=== PATIENT | male | born 1990 | race Two or more races ===

== ENCOUNTER 2018-05-04 13:43 | Emergency (ER) | payer MEDICAID ==
[2018-05-04] MEDS ORDERED: HYDROcodone/acetaminophen 5mg/325mg tablet PO ONE (15:35)
[2018-05-04 15:50] VITALS: BP 124/83
[2018-05-05] MEDS ORDERED: ketorolac tromethamine 15mg/ml inj. IV ONE
[2018-05-05] MEDS ORDERED: LORazepam 2 mg/ml vial IV ONE
== END 2018-05-04 15:51 ==
LOC: ER 13:44
DX: S52.612A Displaced fracture of left ulna styloid process, initial encounter for closed fracture (principal); S62.307A Unspecified fracture of fifth metacarpal bone, left hand, initial encounter for closed fracture; S20.212A Contusion of left front wall of thorax, initial encounter; S05.12XA Contusion of eyeball and orbital tissues, left eye, initial encounter; F17.200 Nicotine dependence, unspecified, uncomplicated; F12.90 Cannabis use, unspecified, uncomplicated; Z98.890 Other specified postprocedural states; Y04.8XXA Assault by other bodily force, initial encounter; Y93.89 Activity, other specified; Y92.89 Other specified places as the place of occurrence of the external cause; Y99.8 Other external cause status
CPT/HCPCS: 29125; 70450; 71100; 73110; 99284; A6449